=== PATIENT | female | born 1965 | race African-American/Black ===

== ENCOUNTER 2016-05-19 08:42 | Inpatient (IN) | payer BC, OTHER ==
[~2016-05-19] VITALS: Ht 167.6 cm; Wt 113.4 kg
--- NOTE | ~2016-05-19 | D ---
[facility] [place] [address] DISCHARGE SUMMARY Name: MONICA NEVILLE Room #: 301-I ADM IN M.R.#: [id number] Admission: 05/19/16 Attend Phys: En Craft MD Discharge: Date of : 61 Report #: [id number] THIS REPORT FOR: //name// CC: En Churchilltl [place] DATE OF SERVICE: 05/20/2016 DISCHARGE CONDITION: Stable. DISCHARGE DISPOSITION: To home. DISCHARGE DIAGNOSES: 1. Atypical right-sided chest pain, likely pleuritic. 2. Poorly controlled hypertension. CONSULTATIONS WHILE INPATIENT: Dr. Martinez, Cardiology. PROCEDURES AND TESTS: Serial cardiac enzymes, chest x-ray, EKG, telemetry unremarkable. Stress test done, results pending at time of this dictation. CT chest and CT angiogram without acute findings. Small liver cysts noted. PHYSICAL EXAMINATION: VITAL SIGNS: The patient is afebrile, pulse of 62, O2 sat 97 on room air, blood pressure 130/85. GENERAL: Awake, alert, in no acute distress. HEENT: Unremarkable. NECK: No JVD or thyromegaly. HEART: S1, S2 present. present bilaterally. ABDOMEN: Soft, nontender. EXTREMITIES: Without edema. NEUROLOGIC: Awake, alert. No focal findings. SKIN: Unremarkable. No rashes or lesions. LABORATORIES AND INVESTIGATIONS: Without any concerning findings. BRIEF INPATIENT COURSE: The patient is a 51-year-old female presenting with some right-sided chest pain. She underwent a cardiac workup for the same, which was unremarkable. Of note, she did have subtle imaging findings of questionable pulmonary nodularity/lymph node measuring 5 mm on the right side as well as some simple appearing cysts in the liver. These are unlikely to be the source of her pain; however, she may have low degree of granulomatous disease and is advised to follow up with the director of marketing and promotions, was discharged as well as follow up with an ultrasound for these lesions at discharge. The patient will undergo stress testing today. If cleared, she can safely be treated with p.r.n. NSAIDs and continue close followup with her primary care physician. I have discussed again [facility] [address] [place] [address] DISCHARGE SUMMARY Name: MONICA NEVILLE Room #: 301-I ADM IN [facility].#: [id number] Admission: 05/19/16 Attend Phys: En Craft MD Discharge: Date of : 61 Report #: [id number] condition with her in detail. I spent greater than 30 minutes in the discharge process for this patient today. <ELECTRONICALLY SIGNED> By: Corey Rowell MD 05/20/16 1544 [id number] [id number] Corey Rowell MD /nt
--- NOTE | ~2016-05-19 | EKG ---
[address] [place] [place] [address] ELECTROCARDIOGRAM REPORT Name: MONICA NEVILLE Room #: 301-I ADM IN M.R.#: [id number] Admission: 05/19/16 Attend Phys: En Craft MD Discharge: Date of : 61 Report #: [id number] THIS REPORT FOR: //name// [facility] ED Test Date: 2016-05-19 Test Time: 08:48:10 Pat Name: MONICA NEVILLE Department: Room: [facility] Gender: F Green Ware Caster: Chris TAVAREZ : 1965 Requested By: Kay Lerma Order Number: [id number] MD: Hugh Milligan Measurements Intervals [place] Rate: 73 P: 19 [place]: 131 QRS: -14 QRSD: 92 T: -59 QT: 395 QTc: 436 Interpretive Statements Sinus rhythm Abnrm T, consider ischemia, anterolateral lds No previous ECG available for comparison Electronically Signed On 05-20-2016 7:49:53 CDT by Hugh Milligan [email or web address] <ELECTRONICALLY SIGNED> By: Hugh Milligan MD, [facility] 05/20/16 0749 7 Hugh Milligan MD, [facility] /EPI
--- NOTE | ~2016-05-19 | EXE ---
[facility] [address] [place] [employer] [place] [address] STRESS ECHOCARDIOGRAM Name: MONICA NEVILLE Room #: 301-[facility].#: [id number] Admission: 05/19/16 Attend Phys: En Craft MD Discharge: Date of : 61 Date of Service: 05/20/16 1023 Report #: [id number] THIS REPORT FOR: //name// APPROVED REPORT Exam: Stress Echocardiogram Patient Location: Echo lab HR: 87 bpm Rhythm: NSR Medical History Medical History: HTN, Chest pain Allergies: Blaise Cardiac Risk Factors: HTN Pretest Chest Pain Characteristics: Nonanginal chest pain Exercise History: Physically active Procedure The patient underwent an Exercise Stress Test using the Long Protocol. Blood pressure, heart rate, and EKG were monitored. An Echocardiogram was performed by asbestos abatement technician in four stages in quad fashion. At peak stress, four selected images were obtained and placed side by side with resting images for comparison. Testing Details Test: Exercise stress testing was performed using a Long protocol. HR Resting HR: 87 bpm Max Heart Rate (APMHR): 167 bpm Max HR Achieved: 130 bpm Target HR (85% APMHR): 141 bpm % of APMHR: 77 Recovery HR: 76 bpm HR response to stress: Normal HR response to stress BP Resting BP: 146/104 mmHg Max BP: 178/102 mmHg Recovery BP: 138/104 mmHg ECG Resting ECG: Sinus Rhythm Stress ECG: Sinus Rhythm ST Change: Normal Arrhythmia: None [facility] [address] [place] [address] STRESS ECHOCARDIOGRAM Name: MONICA NEVILLE Room #: 301-I ADM IN ..#: [id number] Admission: 05/19/16 Attend Phys: En Craft MD Discharge: Date of : 61 Date of Service: 05/20/16 1023 Report #: [id number] Recovery ECG: Sinus Rhythm Clinical Reason for Termination: Maximal effort Exercise duration: 6.5 min Exercise capacity: 8 METs Overall Exercise Capacity for Age: Average Stress ECG Conclusion 1. ELECTROCARIOGRAPHICALLY NEGATIVE FOR ISCHEMIA 2. DECREASED FUNCTIONAL CAPACITY Pre-Stress Echo The resting Echocardiogram showed normal left ventricular contractility with an estimated Ejection Fraction of about 55-60%. Post-Stress Echo The stress Echocardiogram showed normal left ventricular contractility with an estimated Ejection Fraction of about 65-70%. Clinical Normal augmentation of myocardial wall segments using a 17 segment model. Conclusion 1. NO ECHOCARDIOGRAPHIC EVIDENCE OF ISCHEMIA 2. LOW RISK STUDY Other Information Study Quality: Excellent <Conclusion> 1. NO ECHOCARDIOGRAPHIC EVIDENCE OF ISCHEMIA 2. LOW RISK STUDY <ELECTRONICALLY SIGNED> By: Gokul Helton MD 05/20/16 1023 1023 1023 Gokul Helton MD /INF
--- NOTE | ~2016-05-19 | EKG ---
[address] [place] [address] ELECTROCARDIOGRAM REPORT Name: MONICA NEVILLE Room #: 301-I ADM IN M.R.#: [id number] Admission: 05/19/16 Attend Phys: En Craft MD Discharge: Date of : 61 Report #: [id number] THIS REPORT FOR: //name// [facility] ED Test Date: 2016-05-19 Test Time: 11:17:05 Pat Name: MONICA NEVILLE Department: Room: [facility] Gender: F Physician Scientist: jaxson : 1965 Requested By: Kay Lerma Order Number: [id number] MD: Hugh Milligan Measurements Intervals [place] Rate: 60 P: 25 [place]: 143 QRS: 3 QRSD: 92 T: -59 QT: 443 QTc: 443 Interpretive Statements Sinus rhythm Borderline low voltage, extremity leads Nonspecific T wave abnormality No previous ECG available for comparison Electronically Signed On 05-20-2016 7:54:25 CDT by Hugh Milligan [email or web address] <ELECTRONICALLY SIGNED> By: Hugh Milligan MD, [facility] 05/20/16 0754 1117 1117 Hugh Milligan MD, [facility] /EPI
[2016-05-19 08:42] VITALS: BP 178/86
[~2016-05-19 08:42] MED LIST: ALEVE220 MG OR; ASA81BEC PO; CELEXA 10 MG TA10 M1; CELEXA 20 MG TA20 M1; COLACE100 MG PO; HYDROCHLOROTHIA25 M2 PO; HYDROXYZINE HCL25 M1 PO; LISINOPRIL20 MG PO; MACROBID 100 M100 M1 PO; MOBIC15 MG; NAPROSYN250 MG; NOHOMEMEDICATIONS; NORCO 5-325 TA1 EACH PO; PEPCID40 MG PO; TRAMADOL 50 MG50 MG
[2016-05-19 09:24] LABS: ABSOLUTE NEUTROPHILS 2.4 thou/uL (1.4-8.2); BASOPHILS 0.6 % (0.0-2.0); HEMATOCRIT 44.3 % (37.0-47.0); HEMOGLOBIN 14.5 gm/dL (12.0-15.0); LYMPHOCYTES 36.7 % (24.0-44.0); MCH 25.7 pg (26.0-34.0); MCHC 32.8 g/dL (28.0-37.0); MCV 78.6 fL (80.0-100.0); MONOCYTES 7.5 % (1.0-8.0); PLATELET COUNT 252 thou/uL (150-400); POLYS 55.2 % (36.0-66.0); RBC 5.64 mil/uL (4.20-5.00); RDW 16.1 % (10.5-14.5); WBC 4.4 thou/uL (4.0-11.0)
[2016-05-19 09:27] LABS: MANUAL DIFF NO
[2016-05-19 09:39] LABS: ANION GAP 6 mmol/L (7-16); BUN 19 mg/dL (7-18); CALCIUM 8.9 mg/dL (8.5-10.1); CHLORIDE 108 mmol/L (98-107); CO2 27 mmol/L (21-32); GLUCOSE 98 mg/dL (74-106); POTASSIUM 3.9 mmol/L (3.5-5.1); SODIUM 141 mmol/L (136-145)
[2016-05-19 09:47] LABS: TROPONIN-I < 0.04 ng/mL (<0.04-0.07)
[2016-05-19] MEDS ORDERED: NORCO 5-325 TA1 EACH PO (11:23)
[2016-05-19 12:47] VITALS: BP 146/83
[2016-05-19 13:22] VITALS: BP 152/92
[2016-05-19 16:00] VITALS: BP 139/84
[2016-05-19 20:00] VITALS: BP 121/68
[2016-05-20] VITALS: BP 124/60
[2016-05-20 01:17] LABS: HEMATOCRIT 42.1 % (37.0-47.0); HEMOGLOBIN 13.5 gm/dL (12.0-15.0); MCH 25.4 pg (26.0-34.0); MCHC 32.2 g/dL (28.0-37.0); MCV 78.8 fL (80.0-100.0); RBC 5.34 mil/uL (4.20-5.00); RDW 16.1 % (10.5-14.5); WBC 5.2 thou/uL (4.0-11.0)
[2016-05-20 01:35] LABS: ANION GAP 7 mmol/L (7-16); BUN 17 mg/dL (7-18); CALCIUM 8.4 mg/dL (8.5-10.1); CHLORIDE 104 mmol/L (98-107); CO2 28 mmol/L (21-32); GLUCOSE 127 mg/dL (74-106); POTASSIUM 3.6 mmol/L (3.5-5.1); SODIUM 139 mmol/L (136-145); TROPONIN-I < 0.04 ng/mL (<0.04-0.07)
[2016-05-20 04:00] VITALS: BP 112/65
[2016-05-20 08:00] VITALS: BP 130/85
[2016-05-20] MEDS ORDERED: HYDROCHLOROTHIA25 M1 PO (09:44)
[2016-05-20] MEDS ORDERED: POTASSIUM20 PO (09:44)
[2016-05-20 13:06] VITALS: BP 130/85
== END 2016-05-20 17:03 | disposition home or self-care (01) | DRG 313 ==
LOC: ER 08:42 → 3N 11:55 → EROBS 11:55 → 3N 12:47
PROVIDERS: Emergency Medicine; Hospitalist
DX: R07.89 Other chest pain (principal); I10 Essential (primary) hypertension; I25.2 Old myocardial infarction; Z79.899 Other long term (current) drug therapy; Z90.89 Acquired absence of other organs; Z88.0 Allergy status to penicillin; Z91.013 Allergy to seafood; Z87.01 Personal history of pneumonia (recurrent); Z82.49 Family history of ischemic heart disease and other diseases of the circulatory system; Z83.3 Family history of diabetes mellitus; Z80.9 Family history of malignant neoplasm, unspecified
CPT/HCPCS: 10096